=== PATIENT | male | born 1980 | race Hispanic/Latino ===

== ENCOUNTER 2023-07-09 13:51 | Emergency (ER) | payer BC ==
[~2023-07-09] VITALS: Ht 167.6 cm; Wt 111.1 kg
[2023-07-09] MEDS: LIDOCAINE HCL 1% 20 ML VIAL ONE (15:48)
[2023-07-09] MEDS: LIDOCAINE HCL 1% 20 ML VIAL INJ SCH (15:48)
[2023-07-09 16:11] VITALS: BP 148/96; PULSE 75; RESP 18; O2SAT 98
== END 2023-07-09 16:13 | disposition home or self-care (01) ==
LOC: EDH 13:51
DX: S91.311A Laceration without foreign body, right foot, initial encounter (principal); I10 Essential (primary) hypertension; W25.XXXA Contact with sharp glass, initial encounter; Y93.89 Activity, other specified; Y92.89 Other specified places as the place of occurrence of the external cause; Y99.8 Other external cause status
CPT/HCPCS: 12002; 99282

== ENCOUNTER 2023-10-12 18:28 | Emergency (ER) | payer BC ==
[~2023-10-12] VITALS: Ht 170.2 cm; Wt 113.4 kg
[2023-10-12 19:11] LABS: BASOPHILS # (AUTO) 0.06 K/uL (0.00-0.20); BASOPHILS % (AUTO) 0.8 % (0.0-5.0); EOSINOPHILS # (AUTO) 0.31 K/uL (0.00-0.70); EOSINOPHILS % (AUTO) 4.1 % (0.0-8.0); HEMATOCRIT 43.4 % (42-54); IMMATURE GRANULOCYTE ABSOLUTE 0.03 K/uL (0-1); LYMPHOCYTES # (AUTO) 2.9 K/uL (1.0-4.8); LYMPHOCYTES % (AUTO) 37.8 % (21.0-51.0); MEAN CORPUSCULAR HEMOGLOBIN 30.5 pg (27.0-33.0); MEAN CORPUSCULAR HGB CONC 35.3 g/dL (32.0-36.0); MEAN CORPUSCULAR VOLUME 86.6 fL (79-99); MONOCYTES # (AUTO) 0.7 K/uL (0.1-1.0); NEUTROPHILS # (AUTO) 3.7 K/uL (1.8-7.7); NEUTROPHILS % (AUTO) 47.9 % (40.0-77.0); PLATELET COUNT (AUTO) 281 K/uL (130-400); RED BLOOD CELL COUNT(AUTO) 5.01 MIL/uL (4.50-6.20); WHITE BLOOD COUNT (AUTO) 7.6 K/uL (4.8-10.8)
[2023-10-12 19:24] LABS: POTASSIUM 3.7 mmol/L (3.5-5.1)
[2023-10-12 19:27] LABS: INR 0.95 (0.85-1.15); PROTHROMBIN TIME 10.3 SEC (9.6-11.6)
[2023-10-12 19:28] LABS: PARTIAL THROMBOPLASTIN TIME 24.7 SEC (26.3-35.5)
[2023-10-12 19:30] LABS: B-TYPE NATRIURETIC PEPTIDE 30 pg/mL (0-100)
[2023-10-12 20:25] LABS: APPEARANCE,URINE CLEAR (CLEAR); BILIRUBIN,URINE NEGATIVE (NEGATIVE); COLOR,URINE LIGHT-YELLOW (YELLOW); GLUCOSE, URINE (UA) NEGATIVE (NEGATIVE); KETONES,URINE NEGATIVE (NEGATIVE); LEUKOCYTE ESTERASE ,URINE 75 Leu/uL (NEGATIVE); NITRATE,URINE NEGATIVE (NEGATIVE); PROTEIN,URINE NEGATIVE (NEGATIVE); UROBILINOGEN,URINE 0.2 mg/dL (0.2-1.0)
[2023-10-12 20:31] LABS: ADD UA MICROSCOPIC YES
[2023-10-12 20:33] LABS: MUCUS,URINE RARE LPF (None Seen); RBC,URINE 0-1 /HPF (0-1); SQUAMOUS EPITHELIAL CELL,UR RARE /HPF (0-2)
[2023-10-12 21:41] VITALS: BP 152/84; PULSE 74; RESP 20; O2SAT 97
[2023-10-12] MEDS ORDERED: CYCL10TA16 PO (21:41)
[2023-10-12] MEDS ORDERED: KETO10TA2 PO (21:41)
[2023-10-12] MEDS: KETOROLAC 15MG/ML VIAL (15MG/ML) IV ONE (21:45)
== END 2023-10-12 21:48 | disposition home or self-care (01) ==
LOC: EDH 18:28
DX: S29.011A Strain of muscle and tendon of front wall of thorax, initial encounter (principal); I10 Essential (primary) hypertension; X58.XXXA Exposure to other specified factors, initial encounter; Y93.89 Activity, other specified; Y92.89 Other specified places as the place of occurrence of the external cause; Y99.8 Other external cause status
CPT/HCPCS: 99284; 96374; 71045; 82550; 84484 ×2; 80048; 83880; 85025; 85610; 85730; 87086; 81001; 36415; 93005; J1885